=== PATIENT | male | born 1955 | race Caucasian/White ===

== ENCOUNTER 2017-08-06 08:47 | Emergency (ER) | payer OTHER ==
--- NOTE | 2017-08-06 09:04 | PHYS DOC ---
Adult General Chief Complaint Chief Complaint: CHEST PAIN HPI HPI 62-year-old male presents with chest pain. The patient states the pain started as a dull ache last night around 9:30 PM. 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 He went to bed and assumed things would get better. The patient woke up around 3 AM and continued to have this pressure and heaviness in his central chest. It radiated into his left arm and elbow for a while. Pain was 6 out of 10. In the ED, the patient's pain is decreased to a 3 however he still has a dull ache in the center of his chest. It no longer radiates to his arm. He was feeling short of breath with exertion last night, but denies diaphoresis. He has no nausea or vomiting. He takes an 81 mg aspirin every day. He has a previous cardiac history of tachycardia for which she takes metoprolol. He also takes propranolol for tremors. His last catheter was about 4 years ago it was said to be "clean". He has not had a stress test since. Review of Systems Review of Systems Constitutional: Denies fever or chills [] Eyes: Denies change in visual acuity, redness, or eye pain [] HENT: Denies nasal congestion or sore throat [] Respiratory: Denies cough or shortness of breath at this time [] Cardiovascular: No additional information not addressed in HPI [] GI: Denies abdominal pain, nausea, vomiting, bloody stools or diarrhea [] : Denies dysuria or hematuria [] Musculoskeletal: Denies back pain or joint pain [] Integument: Denies rash or skin lesions [] Neurologic: Denies headache, focal weakness or sensory changes [] Endocrine: Denies polyuria or polydipsia [] All other systems were reviewed and found to be within normal limits, except as documented in this note. Physical Exam Physical Exam Constitutional: Well developed, well nourished, no acute distress, non-toxic appearance. [] HENT: Normocephalic, atraumatic, bilateral external ears normal, oropharynx moist, no oral exudates, nose normal. [] Eyes: PERRLA, EOMI, conjunctiva normal, no discharge. [] Neck: Normal range of motion, no tenderness, supple, no stridor. [] Cardiovascular:Heart rate regular rhythm, no murmur [] Lungs & Thorax: Bilateral breath sounds clear to auscultation [] Abdomen: Bowel sounds normal, soft, no tenderness, no masses, no pulsatile masses. [] Skin: Warm, dry, no erythema, no rash. [] Back: No tenderness, no CVA tenderness. [] Extremities: No tenderness, no cyanosis, no clubbing, ROM intact, no edema. [] Neurologic: Alert and oriented X 3, normal motor function, normal sensory function, no focal deficits noted. [] Psychologic: Affect normal, judgement normal, mood normal. [] EKG EKG Normal sinus rhythm, rate 98, normal axis, no ST elevations or depressions.[] Radiology/Procedures Radiology/Procedures PORTABLE CHEST 1V (AP) INDICATION: Chest pain with cough COMPARISON: None. FINDINGS: The patient is slightly rotated to the right. Normal lung volume. No focal consolidations. Normal pulmonary vasculature. No pleural effusion or pneumothorax. The cardiomediastinal silhouette and great vessels are normal. No acute osseous abnormality. IMPRESSION: No acute cardiopulmonary process. Electronically signed by: Herbie Villarreal MD (08/06/2017 9:18 AM) [facility][] Course & Med Decision Making Course & Med Decision Making Pertinent Labs and Imaging studies reviewed. (See chart for details) Patient's EKG is unremarkable. His chest x-ray is unremarkable. His labs are unremarkable. His troponin is negative. As the patient's pain started well over 6 hours ago, a negative troponin is reassuring. I do not believe that this pain is cardiac or pulmonary in nature. It could be related to his gastric sleeve as he suspected. Says the results with the patient and he was reassured. If his symptoms return or new concerning symptoms develop, he will return to the emergency room. [] Dragon Disclaimer Dragon Disclaimer This electronic medical record was generated, in whole or in part, using a voice recognition dictation system. Departure Departure: Referrals: JOSE EDWARDS MD (PCP) HEYDI DEGROOT DO August 06, 2017 09:04
[2017-08-06] MEDS ORDERED: ASPIRIN 81 MG TAB.CHEW PO ONE (09:15)
--- NOTE | 2017-08-06 09:21 | RAD ---
PORTABLE CHEST 1V (AP) INDICATION: Chest pain with cough COMPARISON: None. FINDINGS: The patient is slightly rotated to the right. Normal lung volume. No focal consolidations. Normal pulmonary vasculature. No pleural effusion or pneumothorax. The cardiomediastinal silhouette and great vessels are normal. No acute osseous abnormality. IMPRESSION: No acute cardiopulmonary process. Electronically signed by: Herbie Villarreal MD (08/06/2017 9:18 AM) [facility]
[2017-08-06 09:34] LABS: BASO % 0 % (0-3); EOS # 0.2 x10^3/uL (0.0-0.7); EOS % 4 % (0-3); HEMATOCRIT 44.8 % (39.0-53.0); HEMOGLOBIN 15.1 g/dL (13.0-17.5); LYMPH # 0.3 x10^3/uL (1.0-4.8); LYMPH % 5 % (24-48); MEAN CORPUSCULAR HEMOGLOBIN 30 pg (25-35); MEAN CORPUSCULAR HGB CONC 34 g/dL (31-37); MEAN CORPUSCULAR VOLUME 89 fL (79-100); MONO # 0.3 x10^3/uL (0.0-1.1); MONO % 5 % (0-9); NEUT # 5.5 x10^3uL (1.8-7.7); NEUT % 86 % (31-73); PLATELET COUNT 237 x10^3/uL (140-400); RED BLOOD COUNT 5.02 x10^6/uL (4.30-5.70); RED CELL DISTRIBUTION WIDTH 13.2 % (11.5-14.5); WHITE BLOOD COUNT 6.4 x10^3/uL (4.0-11.0)
[2017-08-06 09:39] LABS: ALBUMIN 3.6 g/dL (3.4-5.0); ALBUMIN/GLOBULIN RATIO 1.1 (1.0-1.7); CALCIUM 8.4 mg/dL (8.5-10.1); CREATININE 0.9 mg/dL (0.7-1.3); GFR 85.8; POTASSIUM 3.7 mmol/L (3.5-5.1); TOTAL BILIRUBIN 0.7 mg/dL (0.2-1.0); TOTAL PROTEIN 6.9 g/dL (6.4-8.2)
[2017-08-06 10:00] VITALS: BP 131/84
--- NOTE | 2017-08-06 14:53 | EKG ---
[address] [address] Test Date: 2017-08-06 Test Time: 08:52:14 Pat Name: ERVIN SOLIZ Department: Room: Gender: M [employer] Blender: SAM : [id number] Requested By: HEYDI DEGROOT Order Number: [id number] Reading MD: Measurements Intervals [place] Rate: 98 P: 48 FL: 170 QRS: 17 QRSD: 88 T: 72 QT: 356 QTc: 456 Interpretive Statements SINUS RHYTHM QRS(T) CONTOUR ABNORMALITY CONSISTENT WITH INFERIOR INFARCT PROBABLY OLD ABNORMAL ECG RI6.01 No previous ECG available for comparison
== END 2017-08-06 10:11 | disposition home or self-care (01) ==
LOC: ER 08:47
DX: R07.89 Other chest pain (principal); Z79.899 Other long term (current) drug therapy
CPT/HCPCS: 36415; 71045; 80053; 84484; 85025; 93005; 99285-25

== ENCOUNTER → 2021-05-07 | Day surgery (SDC) | payer BC ==
[~2021-05-07] MED LIST: ACETAMINOPHEN 500 MG TABLET PO PRN; AMLO1TAB12 PO; ASPI-630 PO; BALANCED SALT IRRIG SOLN NO.2 500 ML IO ONE; BENZONATATE 100 MG CAPSULE. PO PRN; BRIMONIDINE 0.2% OPHTH SOLUTION 5ML BOTTLE. OD ONE; CARV25TA2 PO; CEFUROXIME OPHTH 4 MG/0.4 ML SYRINGE. OD ONE; CHLO25TA9 PO; CHONDROIT-SOD-HYALURONATE KIT. OD ONE; DOXEPIN; DOXY20TA5 PO; IBUPROFEN 200 MG TABLET PO PRN; IPRATRPIUM/ALBUTEROL 0.5/2.5MG 3 ML NEBU. NEB PRN; IV RINGERS SOLUTION,LACTATED 1,000 ML IV SCH; LIDO/EPI IN BSS OPHTH 2.7 ML SYRINGE. OD ONE; LIDOCAINE 2% JELLY 6ML IN APPLICATOR. ONE; MELO15TA23 PO; MIDAZOLAM HCL PF 2 MG/2 ML VIAL. IV ONE; OMEP20CA16 PO; ONDANSETRON PF 4 MG/2 ML VIAL. IV PRN; PHENYLEPHRINE 10% OPHTH SOLUTION 5ML BOTTLE. OD PRN; POTA10PI2 PO; POVIDONE-IODINE 5% OPHTH SOLUTION 30ML BOTTLE. OD ONE; POVIDONE-IODINE 5% OPHTH SOLUTION 30ML BOTTLE. OD PRN; PROPARACAINE 0.5% OPHTH SOLUTION 15ML BOTTLE. OD ONE; PROPARACAINE 0.5% OPHTH SOLUTION 15ML BOTTLE. OD PRN; SCOP1PAT12 TP; VIAGRA; prednisoLONE ACETATE 1% OPHTH SUSPENSION 5ML BOTTLE. OD ONE
[2021-05-07] MEDS: KETOROLAC TROMETHAMINE 0.5% OPHTH SOLUTION BOTTLE. OD SCH ×2 (07:36→07:50)
[2021-05-07] MEDS: PHENYLEPHRINE 2.5% OPHTH SOLUTION 2ML BOTTLE. OD SCH ×3 (07:36→07:59)
[2021-05-07] MEDS: TOBRAMYCIN 0.3% OPHTH SOLUTION 5ML BOTTLE. OD SCH ×2 (07:37→07:50)
[2021-05-07] MEDS: TROPICAMIDE 1% OPHTH SOLUTION 15ML BOTTLE. OD SCH ×3 (07:37→07:59)
--- NOTE | 2021-05-07 08:21 | PDOC4 ---
SURGEON: Rangel Samano MD Date of Procedure: 05/07/21 PREOP Diagnosis Visually significant cataract: Right Eye OD POSTOP Diagnosis Same PROCEDURE: Phaco w/ posterior chamber IOL: Right Eye OD ANESTHESIA Deep forniceal periocular 2% Lidocaine jelly Beth/retro bulbar block with 2% Lidocaine with 0.5% Marcaine DESCRIPTION OF PROCEDURE The risks, benefits, and alternatives were discussed with the patient who elected to proceed. Informed consent was obtained in writing and placed in the chart After anesthetizing the eye topically, the patient was taken to the operating room, and the operative eye was prepped and draped in the usual sterile fashion for ocular surgery. A wire lid speculum was placed. A 1-mm clear corneal paracentesis incision was created with the side-port blade at a position three o'clock hours clockwise from the temporal cornea. Then, 1% non-preserved Lidocaine with epinephrine was injected into the anterior chamber followed by viscoelastic. Cotton-tipped applicators were used to stabilize the globe, and a 2.4 mm keratome was used to create a self-sealing incision in clear cornea at the temporal limbus. The Utrata forceps were used to create a continuous curvilinear capsulorrhexis. Balanced saline solution was injected via cannula beneath the capsulorrhexis edge to hydrodissect the lens nucleus and cortex from the lens capsule. The phacoemulsification handpiece and a chopping instrument were then used to remove the lens nucleus. The remaining epinuclear material and cortex were removed with the irrigation/aspiration handpiece. V iscoelastic was used to re-inflate the lens capsule, and the intraocular lens was injected directly into the capsular bag. The corneal wound edges were hydrated with balanced salt solution on a cannula and the irrigation/aspiration handpiece was used to extract the remaining viscoelastic. Cefuroxime 0.1mg/ml / Vigamox 0.5% was injected into the anterior chamber intracamerally. The wounds were inspected and found to be watertight at an appropriate intraocular pressure. Topical antibiotic drops were placed on the corneal surface. LRI: No If Yes, Number [] [place] [] Length [] degrees Depth [] microns Incision [place]: 180 Toric Lens [place] [] Patch/shield with Maxitrol/Tobradex/Erythromycin ointment: Yes No Co-managed patients/postop examination stable for co-management with referring doctor. EBL EBL: None SPECIMANS COLLECTED Specimens Collected: None RANGEL SAMANO MD May 07, 2021 08:21
[2021-05-07 08:30] VITALS: BP 119/85
== END | disposition home or self-care (01) ==
LOC: SURG 07:03
PROVIDERS: ATTEND Ophthalmology
DX: H25.11 Age-related nuclear cataract, right eye (principal); I10 Essential (primary) hypertension; E78.00 Pure hypercholesterolemia, unspecified; K21.9 Gastro-esophageal reflux disease without esophagitis; G47.30 Sleep apnea, unspecified; J45.909 Unspecified asthma, uncomplicated; Z79.899 Other long term (current) drug therapy; Z72.89 Other problems related to lifestyle; Z79.82 Long term (current) use of aspirin; Z98.890 Other specified postprocedural states
CPT/HCPCS: 66984; J2250; V2632

== ENCOUNTER → 2021-05-21 | Day surgery (SDC) | payer BC ==
[~2021-05-21] MED LIST changes: +BALANCED SALT IRRIG SOLN NO.2 500 ML ONE; -BRIMONIDINE 0.2% OPHTH SOLUTION 5ML BOTTLE. OD ONE; +BRIMONIDINE 0.2% OPHTH SOLUTION 5ML BOTTLE. ONE; +BRIMONIDINE 0.2% OPHTH SOLUTION 5ML BOTTLE. OS ONE; -CEFUROXIME OPHTH 4 MG/0.4 ML SYRINGE. OD ONE; +CEFUROXIME OPHTH 4 MG/0.4 ML SYRINGE. OS ONE; -CHONDROIT-SOD-HYALURONATE KIT. OD ONE; +CHONDROIT-SOD-HYALURONATE KIT. ONE; +CHONDROIT-SOD-HYALURONATE KIT. OS ONE; -LIDO/EPI IN BSS OPHTH 2.7 ML SYRINGE. OD ONE; +LIDO/EPI IN BSS OPHTH 2.7 ML SYRINGE. OS ONE; -PHENYLEPHRINE 10% OPHTH SOLUTION 5ML BOTTLE. OD PRN; +PHENYLEPHRINE 10% OPHTH SOLUTION 5ML BOTTLE. OS PRN; -POVIDONE-IODINE 5% OPHTH SOLUTION 30ML BOTTLE. OD ONE; -POVIDONE-IODINE 5% OPHTH SOLUTION 30ML BOTTLE. OD PRN; +POVIDONE-IODINE 5% OPHTH SOLUTION 30ML BOTTLE. OS ONE; +POVIDONE-IODINE 5% OPHTH SOLUTION 30ML BOTTLE. OS PRN; -PROPARACAINE 0.5% OPHTH SOLUTION 15ML BOTTLE. OD ONE; -PROPARACAINE 0.5% OPHTH SOLUTION 15ML BOTTLE. OD PRN; +PROPARACAINE 0.5% OPHTH SOLUTION 15ML BOTTLE. OS ONE; +PROPARACAINE 0.5% OPHTH SOLUTION 15ML BOTTLE. OS PRN; +[UNRECOGNIZED DRUG - REMARK] IO ONE; -prednisoLONE ACETATE 1% OPHTH SUSPENSION 5ML BOTTLE. OD ONE; +prednisoLONE ACETATE 1% OPHTH SUSPENSION 5ML BOTTLE. OS ONE
[2021-05-21] MEDS: TROPICAMIDE 1% OPHTH SOLUTION 15ML BOTTLE. OS SCH ×3 (07:48→08:03)
[2021-05-21] MEDS: KETOROLAC TROMETHAMINE 0.5% OPHTH SOLUTION BOTTLE. OS SCH ×2 (07:48→07:55)
[2021-05-21] MEDS: PHENYLEPHRINE 2.5% OPHTH SOLUTION 2ML BOTTLE. OS SCH ×3 (07:48→08:03)
[2021-05-21] MEDS: TOBRAMYCIN 0.3% OPHTH SOLUTION 5ML BOTTLE. OS SCH ×2 (07:48→07:54)
--- NOTE | 2021-05-21 08:37 | PDOC4 ---
SURGEON: Rangel Samano MD Date of Procedure: 05/21/21 PREOP Diagnosis Visually significant cataract: Left Eye OS POSTOP Diagnosis Same PROCEDURE: Phaco w/ posterior chamber IOL: Left Eye OS ANESTHESIA Deep forniceal periocular 2% Lidocaine jelly Beth/retro bulbar block with 2% Lidocaine with 0.5% Marcaine DESCRIPTION OF PROCEDURE The risks, benefits, and alternatives were discussed with the patient who elected to proceed. Informed consent was obtained in writing and placed in the chart After anesthetizing the eye topically, the patient was taken to the operating room, and the operative eye was prepped and draped in the usual sterile fashion for ocular surgery. A wire lid speculum was placed. A 1-mm clear corneal paracentesis incision was created with the side-port blade at a position three o'clock hours clockwise from the temporal cornea. Then, 1% non-preserved Lidocaine with epinephrine was injected into the anterior chamber followed by viscoelastic. Cotton-tipped applicators were used to stabilize the globe, and a 2.4 mm keratome was used to create a self-sealing incision in clear cornea at the temporal limbus. The Utrata forceps were used to create a continuous curvilinear capsulorrhexis. Balanced saline solution was injected via cannula beneath the capsulorrhexis edge to hydrodissect the lens nucleus and cortex from the lens capsule. The phacoemulsification handpiece and a chopping instrument were then used to remove the lens nucleus. The remaining epinuclear material and cortex were removed with the irrigation/aspiration handpiece. Vis coelastic was used to re-inflate the lens capsule, and the intraocular lens was injected directly into the capsular bag. The corneal wound edges were hydrated with balanced salt solution on a cannula and the irrigation/aspiration handpiece was used to extract the remaining viscoelastic. Cefuroxime 0.1mg/ml / Vigamox 0.5% was injected into the anterior chamber intracamerally. The wounds were inspected and found to be watertight at an appropriate intraocular pressure. Topical antibiotic drops were placed on the corneal surface. LRI: No If Yes, Number [] [place] [] Length [] degrees Depth [] microns Incision [place]: 180 Toric Lens [place] [] Patch/shield with Maxitrol/Tobradex/Erythromycin ointment: Yes No Co-managed patients/postop examination stable for co-management with referring doctor. EBL EBL: None SPECIMANS COLLECTED Specimens Collected: None RANGEL SAMANO MD May 21, 2021 08:37
[2021-05-21 08:46] VITALS: BP 135/86
== END | disposition home or self-care (01) ==
LOC: SURG 07:11
PROVIDERS: ATTEND Ophthalmology
DX: H25.12 Age-related nuclear cataract, left eye (principal)
CPT/HCPCS: 66984; J2250; V2632